=== PATIENT | female | born 1970 | race Asian ===

== ENCOUNTER 2021-12-23 10:59 | Emergency (ER) | payer OTHER ==
[~2021-12-23] VITALS: Ht 154.9 cm; Wt 50.0 kg
[2021-12-23 11:26] VITALS: BP 147/87
[2021-12-23] MEDS ORDERED: HYDROcodone/acetaminophen 5mg/325mg tablet PO ONE (15:15)
[2021-12-23] MEDS ORDERED: ondansetron 4mg rapidly disintigrating tab PO ONE (15:15)
[2021-12-23] MEDS ORDERED: ibuprofen tablet 400 MG TABLET PO ONE (15:15)
[2021-12-23] MEDS ORDERED: HYDR-3965 PO (15:57)
== END 2021-12-23 16:18 | disposition home or self-care (01) ==
LOC: ER 11:00
DX: M53.3 Sacrococcygeal disorders, not elsewhere classified (principal); Z98.890 Other specified postprocedural states; Z79.899 Other long term (current) drug therapy
CPT/HCPCS: 72220; 99284